=== PATIENT | male | born 1945 | race Caucasian/White ===

== ENCOUNTER 2023-07-29 13:47 | Outpatient (RCR) | payer MEDICARE, SELFPAY | END 2023-07-29 23:59 | disposition home or self-care (01) | LOC: RPT 13:47 | PROVIDERS: ATTENDING PHYSICIAN Orthopaedic Surgery; FAMILY PHYSICIAN Internal Medicine | DX: Z47.1 Aftercare following joint replacement surgery (principal); M17.11 Unilateral primary osteoarthritis, right knee; Z73.6 Limitation of activities due to disability; M25.561 Pain in right knee; Z96.651 Presence of right artificial knee joint | CPT/HCPCS: 97110; 97140; 97162; 97530 ==

== ENCOUNTER 2023-08-28 13:00 | Outpatient (RCR) | payer MEDICARE, SELFPAY | END 2023-08-28 23:59 | disposition home or self-care (01) | LOC: RPT 13:00 | PROVIDERS: ATTENDING PHYSICIAN Orthopaedic Surgery; FAMILY PHYSICIAN Internal Medicine | DX: M17.11 Unilateral primary osteoarthritis, right knee (principal); Z96.651 Presence of right artificial knee joint; Z73.6 Limitation of activities due to disability | CPT/HCPCS: 97010; 97110; 97530 ==

== ENCOUNTER 2023-09-20 15:13 | Inpatient (IN) | payer MEDICARE, SELFPAY ==
[2023-09-20] VITALS (16 sets, daily range): BP systolic 64–162; BP diastolic 60–80; BMI 26.1
--- NOTE | 2023-09-20 12:37 | ED.GENMED ---
History of Present Illness
General
Chief Complaint: Seizure
Source: ambulance crew
Time Seen by Provider: 09/20/23 12:28
History of Present Illness
History of Present Illness:
77-year-old male brought to the emergency room by ambulance after being found with seizure-like activity. Laparoscopic patient's . She evidently heard a sound of him falling and found him with tonic-clonic activity on the ground. When medics
arrived they found the patient to be minimally responsive. He then became combative. Upon arrival here to the emergency room the patient is awake but somewhat confused. He does follow commands.
Past History
Past History
ED Past Medical History: CAD, HTN, Hypercholesterolemia, Valvular disease (Aortic stenosis) and Other (Crohn's, diverticulitis, arthritis)
ED Past Surgical History: Appendectomy, Bowel resection (Sigmoidectomy), Cardiac, Orthopedic and Other (Cataract)
Social History
Personal:
Living: with family
Employment: Retired
Phy Exam
Physical Exam
Physical Exam:
General: Awake, Alert, Oriented X1. No acute distress.
Vitals: unremarkable
Head: Atraumatic
Mouth: Pain injury right anterior tongue
Eyes: Pupils equal, EOMI
Throat: Airway intact, no exudates
Neck: Trachea midline
Lungs: Clear and equal b/l
Heart: Regular rate, no murmurs
Abd: Soft, Nontender, No pulsatile mass
Neuro: Cranial nerves intact, muscle strength equal bilaterally, cerebellar exam normal
Skin: Warm, dry, no rash
Extremities: pulses equal b/l, no edema
Course
Orders/Labs/Results
Orders:
Orders
09/20/23 Lunch
NPO
Allow oral meds: Yes
Allow clear liquids: Sips of Clears
NPO with Ice Chips: Yes
09/20/23 12:28
Electrocardiogram (*1) Urgent
Reason for Study: Syncope
09/20/23 12:29
CT Head W/o Iv Contrast Urgent
Comment:
Reason For Exam: seizure
09/20/23 12:30
EKG- Treatment ONCE
09/20/23 12:32
Complete Blood Count/With Diff Urgent
Comprehensive Metabolic Panel Urgent
Creatine Phosphokinase Urgent
Folate Urgent
Magnesium Urgent
TSH Urgent
Vitamin B12 Urgent
Comment: MAG,TSH,FOLATE,B12 ADDED ON BY FLOOR 4PM 09-20-23
09/20/23 12:34
Troponin I Urgent
09/20/23 13:27
Levetiracetam Injectable [Keppra] 2,000 mg IV NOW STA
Lorazepam [Ativan] 1 mg PO NOW STA
09/20/23 13:31
Lorazepam [Ativan] 1 mg IV NOW STA
09/20/23 14:53
Admit/Transfer Patient As Directed
Co-Sign Provider:
Level of Care: Inpatient admission
Assign to:: IMU- Intermediate Care
Physician / Group: [facility]/Hospitalist
Diagnosis: Status epilepticus
Reason for Hospitalization: Seizure, status epilepticus
Expected length of stay greater than two midnights?: Yes
ELOS- Estimated Length of Stay in days: 3
I certify the patient meets the requirements for IP care: Yes
09/20/23 14:56
Code Status As Directed
Resuscitation Status: Full Code
09/20/23 15:59
0.9% Sodium Chloride 1000 ml [Nss] 1,000 ml IV 125 mls/hr
Acetaminophen [Tylenol] 650 mg PO Q4HPRN PRN
09/20/23 15:59
Add On- LAB Urgent
Tests Added?: Magnesium, TSH, Folate, B-12, CK
NEUROLOGY CONSULT Routine
Consulting Provider: Christel Cai
Was physician already notified: Yes
Reason for consult: seizure, status
Activity As Directed
Activity Level: With Assistance
Neurological Checks As Directed
Frequency: q4h
Pneumatic Compression Sleeves As Directed
Type: Knee high
Precautions As Directed
Type of Precautions: Seizure
Aspiration
Vital Signs As Directed
Frequency: Per unit guidelines
O2 Therapy [RESP] Routine
Nasal Cannula Liter Flow: 2 LPM
Titrate/Wean O2 to maintain O2 sat greater than (%): 92
Pulse Ox/spot Check [RESP] Routine
Quantity: 1
DX Deep Vein Thrombosis Video Routine
09/20/23 18:00
Enoxaparin Sodium [Lovenox] 40 mg SC QPM
Metoprolol Xl [Toprol Xl] 25 mg PO QPM
Rosuvastatin Calcium [Crestor] 20 mg PO QPM
09/20/23 20:00
Levetiracetam Injectable [Keppra] 1,000 mg IV Q12
09/20/23 22:00
Tamsulosin [Flomax] 0.8 mg PO HS
09/21/23 03:47
Basic Metabolic Panel IN AM
Complete Blood Count/No Diff IN AM
09/21/23 08:00
Aspirin Low Dose EC [Aspir Low (Enteric Coated)] 81 mg PO DAILY
Docusate Sodium [Colace] 100 mg PO DAILY
Losartan/Hydrochlorothiazide [Hyzaar 100-25 Tablet] 1 tab PO DAILY
Abnormal Lab Results
09/20/23 09/20/23
12:32 12:33
RBC 3.74 L 10^6/uL
(4.70-6.10)
Hgb 12.1 L g/dL
(13.0-18.0)
Hct 36.4 L %
(39.0-52.0)
MCV 97.3 H fL
(80.0-94.0)
MCH 32.4 H pg
(27.0-31.0)
Abs Immat Gran (auto) 0.1 H 10^3/uL
(0-0.05)
Absolute Neuts (auto) 6.7 H 10^3/uL
(1.4-6.5)
Absolute Monos (auto) 0.7 H 10^3/uL
(0.1-0.6)
Immature Gran % 0.8 H %
(0-0.5)
Lymphocytes % 17.9 L %
(20.5-51.1)
Carbon Dioxide 14 L* mmol/L
(22-30)
BUN 27 H mg/dl
(9-20)
Creatinine 1.4 H mg/dL
(0.7-1.3)
Glucose 150 H mg/dl
(70-99)
Magnesium 2.7 H mg/dl
(1.6-2.3)
Folate > 20.0 H ng/ml
(2.76-20)
POC Glucose 125 H mg/dl
(70-99)
09/20/23 12:32
09/20/23 12:32
Vital Signs
Initial and Last Documented VS:
Initial Vital Signs
Temp Pulse Resp BP Pulse Ox
98.4 F 78 20 128/70 97
09/20/23 12:27 09/20/23 12:27 09/20/23 12:27 09/20/23 12:27 09/20/23 12:27
Last Documented Vital Signs
Temp Pulse Resp BP Pulse Ox
98.0 F 57 15 118/67 94
09/21/23 03:30 09/21/23 00:30 09/21/23 00:30 09/21/23 00:10 09/21/23 00:30
MDM/Problems Addressed
Differential Diagnosis Includes:
new onset sz, status epilepticus, medication effect, cva
MDM/Problems Addressed:
Patient presents with seizure at home and had another seizure here in the emergency room. Patient given dose of lorazepam for immediate seizure control was loaded with Keppra. CT does not show any acute abnormality. No further seizure activity
here in the emergency room. Patient be hospitalized to the hospitalist service. I did discuss the patient's presentation with neurology who agree with loading of Keppra. Patient's daughter describes an episode that occurred in July what
sounds like he may have had an absence seizure. Patient also had a seizure after a stress test at [facility]. That episode was attributed to medications given at the time but given today's episodes perhaps that is not the case.
*Radiology
Radiology exam reviewed: radiology read reviewed
*Pulse Oximetry
Patient hypoxic: no
*EKG
Interpreted by ED Provider?: Yes
Interpretation: normal
Heart Rate: 80
Rate: normal
Rhythm: sinus
Downey: normal axis
Interval: normal interval
QRS Pattern: normal QRS
Ischemia: no ischemia
*Ferryboat Pilot Interpretation
Rate: normal
Interpretation: normal
Rhythm: sinus
*Critical Care Note
Total Time (30-74mins, 75-104mins- exclusive of procedures): 40 min
comment:
Critical care statement: A total of 40 minutes of critical care time was provided for this patient. This includes management of unstable vital signs, evaluation of the patient at bedside, reviewing the patient's pertinent medical records, discussion
with consultants, review of old EKGs and review of pertinent medical records. This time with separate from time utilized to perform the aforementioned documented procedures
ED Attending Note
-
Portions of this chart may have been created with voice recognition software.� Occasional wrong word or��sound alike� substitutions may have occurred due to the inherent limitations of voice recognition software.
Discharge Plan
Departure
Patient Disposition: Admit
Date of Disposition: 09/20/23
Time of Disposition: 13:34
Admit to: IMU
Presentation/result/management discussed w/ accepting MD/DO: Hospitalist
Condition: Fair
Discharge Problem:
New onset seizure
Interventions
Interventions:
*Risk Screen - Suicide Last Done: 09/20/23 12:27
*General Assessment Last Done: 09/20/23 12:27
*Neglect/Abuse Screening Last Done: 09/20/23 12:27
*ED COVID-19 Vaccine History Last Done: 09/20/23 12:27
*Nursing Disposition Last Done: 09/20/23 16:08
ED- Cardiac Assessment Last Done: 09/20/23 12:59
ED- Neurological Assessment Last Done: 09/20/23 12:59
ED- Pulmonary Assessment Last Done: 09/20/23 12:59
Discharge Date and Time
Discharge Date/Time: 09/20/23 16:08
[2023-09-20 12:42] LABS: % Basophils 0.4 % (0-2); % Eosinophils 0.5 % (0-6); % Immature Granulocytes 0.8 % (0-0.5); % Lymphocytes 17.9 % (20.5-51.1); % Monocytes 7.1 % (1.7-9.3); % Neutrophils 73.3 % (42.2-75.2); Absolute Eosinophils 0.1 10^3/uL (0-0.7); Absolute Immature Granulocytes 0.1 10^3/uL (0-0.05); Absolute Lymphocytes 1.6 10^3/uL (1.2-3.4); Absolute Monocytes 0.7 10^3/uL (0.1-0.6); Absolute Neutrophils 6.7 10^3/uL (1.4-6.5); Hematocrit 36.4 % (39.0-52.0); Hemoglobin 12.1 g/dL (13.0-18.0); Mean Corp Hgb Conc. 33.2 g/dL (33.0-37.0); Mean Corpuscular Hgb 32.4 pg (27.0-31.0); Mean Corpuscular Volume 97.3 fL (80.0-94.0); Mean Platelet Volume 10.4 fL (7.4-10.4); Nucleated Red Blood Cells % 0 % (-); Platelet Count 230 10^3/uL (130-400); Red Blood Cell Count 3.74 10^6/uL (4.70-6.10); White Blood Cell Count 9.2 10^3/uL (4.8-10.8)
[2023-09-20 12:51] LABS: Glucose - Point of Care 125 mg/dl (70-99)
[2023-09-20 13:05] LABS: ALT (SGPT) 20 U/L (0-50); AST (SGOT) 31 U/L (17-59); Albumin 4.8 g/dl (3.5-5.0); Alkaline Phosphatase 69 U/L (38-126); Blood Urea Nitrogen 27 mg/dl (9-20); Calcium 9.4 mg/dl (8.4-10.2); Carbon Dioxide 14 mmol/L (22-30); Chloride 102 mmol/L (98-107); Glucose 150 mg/dl (70-99); Potassium 4.4 mmol/L (3.5-5.1); Sodium 137 mmol/L (135-145); Total Bilirubin 0.7 mg/dl (0.2-1.3); Total Protein 7.8 g/dl (6.3-8.2); eGFR 51.77
[2023-09-20 13:08] LABS: Troponin I < 0.012 ng/ml
--- NOTE | 2023-09-20 13:27 | CON.NEURO ---
Consultation
Order
Date of Consultation: 09/20/23
Requesting Provider: Sang Mckeon DO
Reason for Consult: seizure
CC: none
HPI: This is a 77-year-old RH man who presented to [facility] on September 20, 2023 with seizure cluster. According to patient's she heard the patient making noises downstairs. She found her sitting on the car stool, shaking and
unable to express his thoughts. He was able to be lowered to the floor with no head trauma. According to EMR patient did have a fall. He was combative following the spell the patient reportedly had witnessed seizure with no documented semiology
and duration in the emergency room.
The patient was reportedly on tramadol for recent R TKA as well as recently received Stelara.
Mr. Wolfe reportedly suffered a seizure in May 2023 that was attributed to Aminophylline/Regadenoson use.
ER VS: 128/70, 78, afebrile.
EKG: NSR, QTc Int : [address] head- focal area of encephalomalacia involving the right anterolateral frontal lobe, atrophy
PDMP: Oxycodone Hcl 5 Mg 30 tabs filled in on 07/01/2023, Tramadol Hcl 50 Mg 30 tabs filled in on 11/27/2021.
Labs: Normal WBCs, sodium, CO2�14, creatinine�1.4, glucose�150, normal calcium
MAR: Keppra 2 g IV once at 1340 today.
PMH: Crohn's disease on Stelara, ILD, CAD, HTN, DLP, h/o , BPH, MGUS, GERD, gout, migraine ADAMS, GIB, TBI(195), insomnia, thoracolumbar scoliosis
PSH: �BL TKA, hemilaminectomy, LT temporal artery biopsy, AVR, bilateral cataract extraction, PTCI, L colectomy, L rotator cuff repair, carpal tunnel release-bilateral, appendectomy, R ankle surgery, left wrist fusion
SH: former smoker, , retired; no history of excessive alcohol
FH: Not contributory to current presentation.
All: Aspirin, penicillin, diclofenac, morphine, NSAIDs, Aminophylline, Regadenoson
ROS: Positive for somnolence, right knee soreness, back pain, right plan soreness, negative for headache, myalgia, change in vision, strength.
General: Well developed. In no acute distress.
Cardio: Regular rate and rhythm without murmur. Extremities are without cyanosis or edema.
Neuro:
Mental Status: Lethargic oriented to person, place, and date. Impaired l attention and recall. Good fund of knowledge. Follows complex requests across the midline. Comprehension, naming, and repetition intact.
Cranial Nerves: . Pupils are equally round, surgical. EOMs full. Visual le full to confrontation. No ptosis. No nystagmus. V1-V3 intact to light touch and pinprick bilaterally, symmetric. Face symmetric. Impaired hearing AU. The palate
elevated well. SCMs and traps 5/5. Tongue midline. No dysarthria.
Motor: Normal bulk and tone. No pronator or arm drift. Strength 5/5 throughout. No clonus.
Reflexes: Limited due to position
Sensory: Limited due to poor attention
Coordination: No dysmetria or tremor.
Gait: deferred
Right thumb laceration with
Assessment and Plan:
I. Seizure cluster. Likely provoked
II. Postictal/toxic encephalopathy
III. Right anterolateral frontal lobe encephalomalacia
-Seizure precautions
-Continue Keppra 500 mg twice daily
-Avoid medications known to lower seizure threshold
-Brain MRI without tommy
-Routine EEG (not available on weekends)
-Please check magnesium, TFTs, urine tox, EtOH level, CPK, prolactin
-Obtain medical records from [facility] for review
-The case was discussed with patient's spouse and daughter.
I personally reviewed all radiology and labs along with past medical records pertinent to current medical problems. Total time spent in patient care is 60 minutes.
Thank you for allowing us to participate in the care of this patient. We will continue to follow. Please do not hesitate to contact us with any questions or concerns.
Subjective/Objective
Subjective Data
Date of Service: September 20, 2023
Objective Data
Vital Signs
Temp Pulse Resp BP Pulse Ox
36.9 C 73 21 127/66 97
09/20/23 12:27 09/20/23 13:15 09/20/23 13:15 09/20/23 13:00 09/20/23 13:15
Lab Results
09/20/23 12:32
09/20/23 12:32
Sodium 137 mmol/L (135-145) 09/20/23 12:32
Potassium 4.4 mmol/L (3.5-5.1) 09/20/23 12:32
BUN 27 mg/dl (9-20) H 09/20/23 12:32
Glucose 150 mg/dl (70-99) H 09/20/23 12:32
Calcium 9.4 mg/dl (8.4-10.2) 09/20/23 12:32
Patient Allergies
Penicillins Allergy (Verified 05/09/21 08:25)
Joint inflammation
diclofenac Adverse Reaction (Verified 05/09/21 08:25)
chrons
morphine Adverse Reaction (Verified 05/09/21 08:25)
HALLUCINATIONS AND AGITATION
NSAIDS (Non-Steroidal Anti-Inflamma Adverse Reaction (Verified 05/09/21 08:25)
Chrons disease
Medications
-
Home Medications
Medication Instructions Recorded
metoprolol succinate 25 mg 25 mg PO QPM 07/17/12
tablet,extended release 24 hr
rosuvastatin 20 mg tablet 20 mg PO QPM 03/24/19
aspirin 81 mg tablet,delayed 81 mg PO DAILY ##0 05/10/21
release
docusate sodium 100 mg capsule 100 mg PO DAILY 09/20/23
losartan 100 1 tab PO DAILY 09/20/23
mg-hydrochlorothiazide 25 mg tablet
saw palmetto 160 mg capsule 450 mg PO DAILY 09/20/23
tamsulosin 0.4 mg capsule 0.8 mg PO HS 09/20/23
ustekinumab 90 mg/mL subcutaneous 90 mg SC Q8W 09/20/23
syringe (Stelara)
Vital Signs and Labs
-
Vital Signs and Labs:
Vital Signs
Temp Pulse Resp BP Pulse Ox
36.9 C 73 19 140/68 97
09/20/23 12:27 09/20/23 14:45 09/20/23 14:45 09/20/23 14:00 09/20/23 14:30
Lab Results
09/20/23 12:32
09/20/23 12:32
Sodium 137 mmol/L (135-145) 09/20/23 12:32
Potassium 4.4 mmol/L (3.5-5.1) 09/20/23 12:32
BUN 27 mg/dl (9-20) H 09/20/23 12:32
Glucose 150 mg/dl (70-99) H 09/20/23 12:32
Calcium 9.4 mg/dl (8.4-10.2) 09/20/23 12:32
Home Medications
-
Home Medications
metoprolol succinate 25 mg tablet,extended release 24 hr 25 mg PO QPM 07/17/12
rosuvastatin 20 mg tablet 20 mg PO QPM 03/24/19
aspirin 81 mg tablet,delayed release 81 mg PO DAILY ##0 05/10/21
docusate sodium 100 mg capsule 100 mg PO DAILY 09/20/23
losartan 100 mg-hydrochlorothiazide 25 mg tablet 1 tab PO DAILY 09/20/23
saw palmetto 160 mg capsule 450 mg PO DAILY 09/20/23
tamsulosin 0.4 mg capsule 0.8 mg PO HS 09/20/23
ustekinumab 90 mg/mL subcutaneous syringe (Stelara) 90 mg SC Q8W 09/20/23
[2023-09-20] MEDS: KEPPRA 2000 MG IV (13:42)
[2023-09-20] MEDS: ATIVAN 1 MG IV (13:43)
--- NOTE | 2023-09-20 13:52 | HPS.HSE ---
Addendum entered and electronically signed by Marily Petersen DO 09/20/23 20:36:
The patient spiked a fever of 101.3 at approximately 445pm. No headache, no other symptoms. Pt still somnolent but arousable. VSS otherwise
Discussed patient with Neuro and ID and the patient's .
Add Assessment:
#Fever and seizure
#Immunocompromise on Stelara for Crohn's, last dose 1.5 weeks ago
Plan:
#blood, urine cultures, COVID negative
#LP-IR consulted for LP with [employer] meningitis panel, gram stain, cx, glucose, protein, cell count
#start IV Ampicillin, IV Vancomycin, IV Rocephin, and IV Acyclovir
# Add steroids if [employer] meningitis panel positive for s. pneumo
# Discussed 'allergy to PCN' which states was 'a long time ago' and involved inflammation of the joints-an 'RA-type reaction', discussed with ID who recommended standard therapy with Ampicillin as first line. Discussed plan for empiric
treatment with patient's . Will discuss discontinuation of ampicillin if listeria is negative after LP tonight.
Original Note:
Family Physician
-
Family Physician: Soniya Mckenna
Chief Complaint
-
seizure
History of Present Illness
The patient is a 77 yo male with PMH significant for Crohn's Disease on Stelara (biologic agent) most recent SQ injection 1.5 weeks ago, hx of sigmoidectomy, CAD (stents), HTN, aortic stenosis (TAVR), recent knee replacement in June at [place]
(taking Ultram prn since then for pain), presents to the ED via EMS due to seizure-like activity prior to arrival. He is post-ictal following the event and history provided by and daughter- heard the patient making loud noice downstairs and
found him on the edge of the stool, almost falling off, with arms and legs 'flailing' in rhythmic motion; he almost fell but broke his fall, and placed him down on the ground on his side. He was noted to be having seizure-like tonic-clonic
activity. She called 911. He was minimally responsive when EMS arrived, noted to have GCS 3, and was noted to become combative. He had blood on his lip from a tongue bite. In ED, the patient was awake but continued to be somnolent, followed by
another similar episode witnessed in the ED associated with blank stair, head to the right, rhythmic motions, which broke with IV Ativan 1 mg and Keppra. The patient can respond to voice command currently, can state name and , but falls back to
sleep immediately and continues to be somnolent. No focal deficits. No ADAMS, no CP, no SOB, no fevers, no chills, no recent illnesses. He had a similar episode to this in May after a cardiac stress test for pre-op evaluation, which was attributed
to a medication he received during the stress test. He had a work-up at [place] at that time including MRI brain and EEG that family states was negative for acute pathology and he was not started on any anti-epileptic drugs. Of note the patient
also had a 'spell' during , in which he had transient staring spell a/w confusion that lasted several minutes then self-resolved, followed by a period of increased agitation.
He had an MRI here in 08/22/21 for headaches that showed:Diminutive appearance of the intracranial left vertebral artery with redemonstration of focal expansion and high T2 signal in the upper cervical region, likely reflecting slow flow/thrombus,
stable from prior, & Stable moderate T2/FLAIR hyperintense foci within the periventricular and deep subcortical white matter, favored on the basis of chronic small vessel changes.� Differential includes Lyme disease, chronic migraines, vasculitis
and demyelinating lesions.
ED txt: Keppra 2000 mg IV, Ativan 1 mg IV
Medical History
Past Medical History
Past Medical History: Reports CAD (NSTEMI stents LAD 2006 RCA 2015), COPD (asbestos exposure, restrictive and interstitial lung disease), HTN, Hypercholesterolemia, Valvular Disease (Aortic stenosis ) and Other (Crohn's Disease on Stelara, R Carotid
artery stenosis, BPH)
Past Surgical History: Reports Appendectomy, Bowel Resection (Left colectomy), Orthopedic (Right L4-5 hemilaminectomy 05/27/21, Knee replacement 06/2023 [facility]) and Other (TAVR, cataract)
Social History
Tobacco: Former Smoker
Alcohol: Occasional
Drug: None
Personal:
Living: With Family
Employment: Retired
Family History
Family History: CAD (Mom) and Cancer (pancreatic, colorectal, breast, skin)
Allergies / Home Medications
Allergies reflects when Allergies were last updated in [employer]
Home Medications with original date entered in [employer]
Allergy/Medication List:
Allergies
Allergy/AdvReac Type Severity Reaction Status Date / Time
Penicillins Allergy Joint Verified 05/09/21 08:25
inflammation
diclofenac AdvReac chrons Verified 05/09/21 08:25
morphine AdvReac HALLUCINATIONS Verified 05/09/21 08:25
AND
AGITATION
NSAIDS (Non-Steroidal AdvReac Chrons Verified 05/09/21 08:25
Anti-Inflamma disease
Home Medications
metoprolol succinate 25 mg tablet,extended release 24 hr 25 mg PO QPM 07/17/12
rosuvastatin 20 mg tablet 20 mg PO QPM 03/24/19
aspirin 81 mg tablet,delayed release 81 mg PO DAILY ##0 05/10/21
docusate sodium 100 mg capsule 100 mg PO DAILY 09/20/23
losartan 100 mg-hydrochlorothiazide 25 mg tablet 1 tab PO DAILY 09/20/23
saw palmetto 160 mg capsule 450 mg PO DAILY 09/20/23
tamsulosin 0.4 mg capsule 0.8 mg PO HS 09/20/23
ustekinumab 90 mg/mL subcutaneous syringe (Stelara) 90 mg SC Q8W 09/20/23
Review of Systems
-
A 12 point ROS was completed and negative except as noted: Yes
Physical Exam
Vital Signs
Vital Signs
Temp Pulse Resp BP Pulse Ox
98.4 F 73 21 127/66 97
09/20/23 12:27 09/20/23 13:15 09/20/23 13:15 09/20/23 13:00 09/20/23 13:15
Physical Exam
General: Well Developed, Well Nourished and Other (lethargic, somnolent)
HEENT: NormoCephalic, Anicteric and Other (dried blood right side of lip, right anterior tongue bite)
Respiratory: Clear
Cardiac: S1/S2 and Regular Rhythm
GI: Soft, Non Tender, Non Distended and Normal Bowel Sounds
Musculoskeletal: No Clubbing, No Cyanosis and No Edema
Skin: Warm and Dry
Neuro: Awake, Alert (x 2 (falls back to sleep quickly and has to be awakened several times to answer questions)), No Motor Deficits, Nonfocal/grossly intact and Cranial Nerves Intact
Psych: Calm
Laboratory Results
-
09/20/23 12:32
09/20/23 12:32
Laboratory Results
Total Bilirubin 0.7 mg/dl (0.2-1.3) 09/20/23 12:32
AST 31 U/L (17-59) 09/20/23 12:32
ALT 20 U/L (0-50) 09/20/23 12:32
Alkaline Phosphatase 69 U/L (38-126) 09/20/23 12:32
Troponin I < 0.012 ng/ml 09/20/23 12:34
Data Reviewed
-
CT Scan: Report Reviewed by me (CT head No evidence of acute intracranial abnormality. Stable focal area of encephalomalacia involving the right anterolateral frontal lobe.)
Medical Tests (Nuc Med, Echo, EKG etc): Image Personally Visualized and interpreted (EKG-NSR rate 80)
Impression/Plan
-
IMPRESSION:The patient is a 77 yo male with PMH significant for Crohn's Disease on Stelara (biologic agent) most recent SQ injection 1.5 weeks ago, hx of sigmoidectomy, CAD (stents), HTN, aortic stenosis (TAVR), recent knee replacement in June at
[place] (taking Ultram prn since then for pain), presents to the ED via EMS due to seizure-like activity prior to arrival. He is post-ictal following the event and history provided by and daughter- heard the patient making loud noice
downstairs and found him on the edge of the stool, almost falling off, with arms and legs 'flailing' in rhythmic motion; he almost fell but broke his fall, and placed him down on the ground on his side. He was noted to be having seizure-like
tonic-clonic activity. She called 911. He was minimally responsive when EMS arrived, noted to have GCS 3, and was noted to become combative. He had a similar episode to this in May after a cardiac stress test for pre-op evaluation, which was
attributed to a medication he received during the stress test. He had a work-up at [place] at that time including MRI brain and EEG that family states was negative for acute pathology and he was not started on any anti-epileptic drugs. The patient
also had a 'spell' during , in which he had transient staring spell a/w confusion that lasted several minutes then self-resolved, followed by a period of increased agitation.
ED txt: Keppra 2000 mg IV, Ativan 1 mg IV
No evidence of acute intracranial abnormality. Stable focal area of encephalomalacia involving the right anterolateral frontal lobe.
focal area of volume loss and CSF density, compatible with encephalomalacia, stable from previous examination, and most likely from old infarction, although could possibly be from previous head injury.
-MRI here in 08/22/21 for headaches that showed:Diminutive appearance of the intracranial left vertebral artery with redemonstration of focal expansion and high T2 signal in the upper cervical region, likely reflecting slow flow/thrombus, stable from
prior, & Stable moderate T2/FLAIR hyperintense foci within the periventricular and deep subcortical white matter, favored on the basis of chronic small vessel changes.� Differential includes Lyme disease, chronic migraines, vasculitis and
demyelinating lesions.
#Seizures x 2 without resolution to baseline in between seizures, spanning a time period of at least 40-50 minutes, concern for Status Epilepticus, likely remains post-ictal at this time
-Hold Stelara and Ultram for now and discuss possible provoked seizures due to adverse reaction versus new-onset epilepsy due to other etiology
-Admit to IMU, tele, seizure precautions
-Neurology consultation is appreciated
-cont O2 per protocol and wean as able
-Keppra 1 g IV Q12 H
-Neuro checks
-EEG and further imaging if needed, to be ordered by Neurology
-NPO for now, eval for swallowin prior to starting diet
-Aspiration precautions
-Mg, TSH, Folate, B-12 (MCV high), and CK pending
#Acidotic likely due to seizure activity - CO2 14,
-IVF and monitor laboratory
#CKD Creat 1.4, may be baseline
-check CK, IVF, and repeat BMP in am
#Crohn's Disease
-stable, hold Stelara for now
#CAD
-aspirin
-BB
#HLD
-statin
#Essential HTN, BP stable, monitor
-Losartan/HCTZ
#TAVR
#Ortho-recent knee replacement
-hold Tramadol, Tylenol prn for pain
DVT proph-Lovenox
Full Code
[2023-09-20] MEDS: TYLENOL 650 MG PO (16:21)
[2023-09-20] MEDS: NSS 1000 IV (16:21)
[2023-09-20 16:34] LABS: Creatine Phosphokinase 97 U/L (55-170); Magnesium 2.7 mg/dl (1.6-2.3)
[2023-09-20 17:18] LABS: TSH 1.28 uIU/ml (0.47-4.68)
[2023-09-20 17:45] LABS: Creatine Phosphokinase 96 U/L (55-170); Magnesium 2.5 mg/dl (1.6-2.3)
[2023-09-20 17:46] LABS: Alcohol None Detected
[2023-09-20 17:53] LABS: Folate > 20.0 ng/ml (2.76-20); Vitamin B12 755 pg/ml (239-931)
[2023-09-20 18:02] LABS: Prolactin 8.2 ng/ml (3.7-17.9)
--- NOTE | 2023-09-20 18:15 | PTCARENOTE ---
patient arrived from ED and he is drowsy but easily arousable. alert and oriented x3. Answering questions appropriately. NSR 70s, Pulse ox at 999 on 2L nc. Pt complained of feeling cold and arrived to unit with multiple blankets. Temp 101.3, p.o.
Tylenol given and IVF initiated. F/U temp is 99.8 . Pt c/o mild headache and feeling tired. He is dosing at intervals and is assisting with historical information. Pt has extensive med history, copy made and placed in chart. Skyscraper updated.
Pt Jarek with difficulty. pt had rt knee replacement in June and small scab noted at distal end of incision. No redness or discomfort noted. notified of elevated temp, pt's daughter reports she recently had Covid and requests he be swabbed due
to elevated temp at this time.
[2023-09-20 18:17] LABS: TSH Reflex To Free T4 0.52 uIU/ml (0.47-4.68)
[2023-09-20 18:24] LABS: Amphetamines Negative (Negative); Barbiturates Negative (Negative); Benzodiazepines Negative (Negative); Buprenorphine Negative (Negative); Cocaine Negative (Negative); Methamphetamines Negative (Negative)
[2023-09-20 18:25] LABS: Marijuana Negative (Negative); Methadone Negative (Negative); Opiates Negative (Negative); Phencyclidine Negative (Negative); Tricyclic Antidepressants Negative (Negative)
[2023-09-20 18:32] LABS: Urine Albumin Trace (Neg - Trace); Urine Bilirubin Negative (Negative); Urine Character Clear (Clear); Urine Color Yellow; Urine Glucose Negative (Negative); Urine Ketone Negative (Negative); Urine Leukocyte Negative (Negative); Urine Nitrite Negative (Negative); Urine Occult Blood Negative (Negative); Urine Urobilinogen Negative (Neg - 1+)
[2023-09-20 18:34] LABS: COVID-19 Antigen Negative (Negative)
--- NOTE | 2023-09-20 18:55 | PHA.VAN.IN ---
Assessment
- Assessment
Renal Function: Appears similar to baseline (SCr 1.4, same for 4 draws in a row)
Concomitant Antimicrobials: acyclovir, ceftriaxone 2g q12h
Plan
- Plan
Initial / Loading Dose: vanc 2000mg - pending administration
Maintenance Regimen: dose by level
Monitoring: random level 3/24 am
MRSA Screen: Ordered per protocol
Pharmacokinetics Vancomycin I
- -
Patient Age: 77
Patient Sex: Male
Vancomycin Day #: 1
Indication: Acid Changer Infection
Requesting Provider: Dr Petersen
Pertinent Antimicrobial Allergies:
Penicillins Allergy (Verified 05/09/21 08:25) Joint inflammation
Height / Weight:
Height 5 ft 8 in
Actual Weight 77.8 kg
Pertinent Past Medical History: p/w seizure-like activity, h/o Crohn's disease on ustekinumab
- Vital Signs / Lab Results
Temp Pulse Resp BP Pulse Ox
99.8 F 69 12 135/74 97
09/20/23 17:40 09/20/23 17:45 09/20/23 17:45 09/20/23 17:38 09/20/23 18:01
Lab Results - Hematology
09/20/23
12:32
WBC 9.2
Lab Results - Chemistry
09/20/23
12:32
BUN 27 H
Creatinine 1.4 H
Albumin 4.8
Lab Results - Urine
09/20/23
18:04
Urine Nitrite (Reflex) Negative
Leukocyte Esterase Rfl Negative
[2023-09-20] MEDS: TOPROL XL 25 MG PO (19:10)
[2023-09-20] MEDS: CRESTOR 20 MG PO (19:11)
[2023-09-20 19:35] LABS: INR 1.16; PT 14.6 Sec (11.4-14.6)
--- NOTE | 2023-09-20 20:00 | PTCARENOTE ---
Resumed care of pt laying in bed drowsy, arousable to voice, [place], AAOx3. at bedside. HR in the 60's in NSR on the monitor. POX 98% on 2LO2 NC. Lungs clear. + bowel. Pt using urinal independently when needed. Palpable peripheral pulses. Knee
high seq applied per MD order. Right AC int infusing NSS@125ml/hr. Lab work obtained. Pt instructed on MD order for LP. and pt report understanding. vital signs stable. Neuro checks as documented. Will continue to monitor.
[2023-09-20] MEDS: LOVENOX 40 MG SC (20:30)
[2023-09-20] MEDS: VANCOCIN 540 MG IV (20:31)
[2023-09-20] MEDS: KEPPRA 500 MG IV (20:34)
[2023-09-20] MEDS: ROCEPHIN 2000 MG IV (20:50)
[2023-09-20] MEDS: STERILE WATER FOR INJECTION 20 ML IV (20:50)
[2023-09-20 20:53] LABS: CSF Color Xanthochromic; CSF Tube # 1
[2023-09-20] MEDS: AMPICILLIN 108 MG IV (20:53)
[2023-09-20 20:54] LABS: CSF Clarity Hazy
[2023-09-20 20:56] LABS: White Cell Count/CSF 7 mm^3 (0-5)
--- NOTE | 2023-09-20 21:00 | PTCARENOTE ---
Pt to and from IR for LP without complication. Pt ordered to lay flat for 2 hours. Pt and at bedside reports understanding. Pt denies any complaints at this time. Vital signs stable. IVF and IV ABX infusing as ordered. Oral and Ax temp
obtained, 100.0. Will continue to monitor.
[2023-09-20 21:15] LABS: Spinal Fluid Glucose 62 mg/dl (40-70); Spinal Fluid Protein 74 mg/dl (12-60)
[2023-09-20 21:33] LABS: %Crenated RBC/CSF 0 %; Red Cell Count/CSF 1067 mm^3; Spinal Fluid Granulocytes 36 %; Spinal Fluid Lymphocytes 55 %; Spinal Fluid Macrophages 9 %
[2023-09-20] MEDS: ZOVIRAX INJECTION 265 MG IV (21:55)
[2023-09-20] MEDS: FLOMAX 0.800000000000000044 MG PO (22:39)
[2023-09-20 22:50] LABS: CSF Color Xanthochromic; CSF Tube # 4; CSF Tube # Clarity Clear
[2023-09-20 23:27] LABS: White Blood Cell Count/CSF 7 mm^3 (0-5)
[2023-09-20 23:28] LABS: Red Cell Count/CSF 435 mm^3
[2023-09-21] VITALS (7 sets, daily range): BP systolic 108–134; BP diastolic 59–67; BMI 27.0
[2023-09-21] MEDS: NSS 1000 IV ×2 (00:11→09:27)
[2023-09-21] MEDS: AMPICILLIN 108 MG IV ×3 (00:11→08:41)
[2023-09-21] MEDS: TYLENOL 650 MG PO (00:12)
[2023-09-21 04:01] LABS: Hematocrit 27.2 % (39.0-52.0); Hemoglobin 9.1 g/dL (13.0-18.0); Mean Corp Hgb Conc. 33.5 g/dL (33.0-37.0); Mean Corpuscular Hgb 31.9 pg (27.0-31.0); Mean Corpuscular Volume 95.4 fL (80.0-94.0); Mean Platelet Volume 10.7 fL (7.4-10.4); Platelet Count 152 10^3/uL (130-400); Red Blood Cell Count 2.85 10^6/uL (4.70-6.10); White Blood Cell Count 8.9 10^3/uL (4.8-10.8)
[2023-09-21 04:28] LABS: Vancomycin Random 17.6 ug/ml
[2023-09-21 04:31] LABS: Blood Urea Nitrogen 24 mg/dl (9-20); Calcium 7.5 mg/dl (8.4-10.2); Carbon Dioxide 24 mmol/L (22-30); Chloride 107 mmol/L (98-107); Estimated Creatinine Clearance 54 ml/min; Glucose 85 mg/dl (70-99); Potassium 3.3 mmol/L (3.5-5.1); Sodium 138 mmol/L (135-145); eGFR > 60.00
[2023-09-21] MEDS: KCL 40 MEQ PO (04:46)
--- NOTE | 2023-09-21 04:54 | PTCARENOTE ---
Pt awake intermittently t/o the night. pt reports right knee pain, ice pack applied per pt request. Tylenol administered as ordered. AM lab work reviewed with Selvin REYES. Orders obtained, see MAR. IVF infusing as ordered. Vital signs stable. Will
continue to monitor.
[2023-09-21] MEDS: STERILE WATER FOR INJECTION 20 ML IV ×2 (07:50→20:29)
[2023-09-21] MEDS: KEPPRA 500 MG IV ×2 (07:50→20:27)
[2023-09-21] MEDS: ROCEPHIN 2000 MG IV (07:50)
[2023-09-21] MEDS: HYZAAR 100-25 TABLET 1 TAB PO (07:51)
[2023-09-21] MEDS: COLACE 100 MG PO (07:51)
[2023-09-21] MEDS: ASPIR LOW (ENTERIC COATED) 81 MG PO (07:51)
[2023-09-21] MEDS: ZOVIRAX INJECTION 265 MG IV (08:02)
--- NOTE | 2023-09-21 09:21 | PHA.VAN.FU ---
Vancomycin Assessment / Plan
- Assessment
Renal Function: SCR Decreasing
WBC's are: WNL
In the past 24 hrs, patient has been: Afebrile
Concomitant Antimicrobials: ACYCLOVIR, AMPICILLIN, CEFTRIAXONE
- Assessment - Therapeutic Drug Monitoring
Random Level: 17.6
- Dosing Plan
Dosing by Level: Re-dose today (1250MG)
- Monitoring Plan
Random Level: 09/21 IN AM
CONSIDER SCHEDULE DOSING IF KIDNEY FX IS STABLE
- Follow Up
Pharmacy will continue to follow.
Vancomycin Follow UP
- -
Patient Age: 77
Patient Sex: Male
Vancomycin Day #: 2
Indication: Refueling [place] Infection
Requesting Provider: Dr Petersen
Pertinent Antimicrobial Allergies:
Penicillins Allergy (Verified 05/09/21 08:25) Joint inflammation
Height / Weight:
Height 5 ft 8 in
Actual Weight 80.5 kg
Pertinent Past Medical History: p/w seizure-like activity, h/o Crohn's disease on ustekinumab
- Vital Signs / Lab Results
Temp Pulse Resp BP Pulse Ox
97.6 F 54 16 108/59 99
09/21/23 07:50 09/21/23 06:30 09/21/23 06:30 09/21/23 07:51 09/21/23 06:30
Lab Results - Hematology
09/20/23 09/21/23
12:32 03:47
WBC 9.2 8.9
Lab Results - Chemistry
09/20/23 09/21/23
12:32 03:47
BUN 27 H 24 H
Creatinine 1.4 H 1.1
Estimated Creat Clear 54
Albumin 4.8
Lab Results - Urine
09/20/23
18:04
Urine Nitrite (Reflex) Negative
Leukocyte Esterase Rfl Negative
Microbiology Results
09/20/23 20:03 Meningitis/Encephalitis Panel (PCR) - Final
Csf
09/20/23 20:03 Gram Stain - Preliminary
Csf
Therapeutic Drug Monitoring
Random Vancomycin 17.6 ug/ml 09/21/23 03:47
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
--- NOTE | 2023-09-21 13:37 | W.PN.HOSP.TC ---
Today's Communication/Plan
-
advance diet
slow IVF
recheck labs
Assessment / Plan
Assessment / Plan
IMPRESSION:The patient is a 77 yo male with PMH significant for Crohn's Disease on Stelara (biologic agent) most recent SQ injection 1.5 weeks ago, hx of sigmoidectomy, CAD (stents), HTN, aortic stenosis (TAVR), recent knee replacement in June at
[facility] (taking Ultram prn since then for pain), presents to the ED via EMS due to seizure-like activity prior to arrival. He was post-ictal following the event and history provided by and daughter- heard the patient making loud noise
downstairs and found him on the edge of the stool, almost falling off, with arms and legs 'flailing' in rhythmic motion; he almost fell but broke his fall, and placed him down on the ground on his side. He was noted to be having seizure-like
tonic-clonic activity. She called 911. He was minimally responsive when EMS arrived, noted to have GCS 3, and was noted to become combative. He had a similar episode to this in May after a cardiac stress test for pre-op evaluation, which was
attributed to a medication he received during the stress test. He had a work-up at [facility] at that time including MRI brain and EEG that family states was negative for acute pathology and he was not started on any anti-epileptic drugs. The patient
also had a 'spell' during , in which he had transient staring spell a/w confusion that lasted several minutes then self-resolved, followed by a period of increased agitation.
ED txt: Keppra 2000 mg IV,� Ativan 1 mg IV
No evidence of acute intracranial abnormality. Stable focal area of encephalomalacia involving the right anterolateral frontal lobe.
focal area of volume loss and CSF density, compatible with encephalomalacia, stable from previous examination, and most likely from old infarction, although could possibly be from previous head injury.
-MRI here in 08/22/21 for headaches that showed:Diminutive appearance of the intracranial left vertebral artery with redemonstration of focal expansion and high T2 signal in the upper cervical region, likely reflecting slow flow/thrombus, stable from
prior, & Stable moderate T2/FLAIR hyperintense foci within the periventricular and deep subcortical white matter, favored on the basis of chronic small vessel changes.� Differential includes Lyme disease, chronic migraines, vasculitis and
demyelinating lesions.
#Seizures x 2 without resolution to baseline in between seizures, spanning a time period of at least 40-50 minutes, pt has had no further episodes and is currently awake and fully alert
-Hold Stelara and Ultram for now and discuss possible provoked seizures due to adverse reaction versus new-onset epilepsy due to other etiology
-Admitted to IMU, tele, seizure precautions
-Neurology consultation is appreciated
-cont O2 per protocol and wean as able
-Keppra 500 mg IV Q12 H
-Neuro checks
-EEG and further imaging if needed, to be ordered by Neurology
-did well with nurse bedside swallowing exam and diet has been advanced
-Aspiration precautions
-Mg, TSH, Folate, B-12 (MCV high), and CK pending
#Acidotic likely due to seizure activity - CO2 14-->24,
-now resolved
#CKD Creat 1.4-->1.1,
Hypokalemia post IVF, will supplement and recheck tomorrow
#Crohn's Disease
-stable, hold Stelara for now
#CAD
-aspirin
-BB
#HLD
-statin
#Essential HTN, BP stable, monitor
-Losartan/HCTZ
#TAVR
#Ortho-recent knee replacement
-hold Tramadol, Tylenol prn for pain
Pt having CXR and MRI of Brain
ID does not believe this is meningitis and abx have been stopped
DVT proph-Lovenox
reviewed extensively with at bedside
Full Code
Anticipated Discharge: 24 - 48 hours
Subjective/Interval History
-
Date of Service: September 21, 2023
No further seizure episodes since episode in ER
Objective Data
-
Labs:
Laboratory Results
09/21/23
03:47
WBC 8.9
Hgb 9.1 L D
Hct 27.2 L
Plt Count 152 D
Sodium 138
Potassium 3.3 L
Chloride 107
Carbon Dioxide 24
BUN 24 H
Creatinine 1.1
Glucose 85
Calcium 7.5 L D
Vital Signs:
Vital Signs
Temp Pulse Resp BP Pulse Ox
98.1 F 54 16 108/59 95
09/21/23 11:40 09/21/23 06:30 09/21/23 06:30 09/21/23 07:51 09/21/23 11:53
I&O
09/20/23 09/21/23 09/22/23
06:59 06:59 06:59
Intake Total 3258 / 3258
Output Total 1350 / 1350 500 / 500
Balance 1908 / 1908 -500 / -500
Review of Systems
-
History Source: Patient and Family ( at bedside)
Constitutional: Reports Fever (afebrile since 09/19 16:39 when temp was 101.3)
EENT: Reports No Symptoms Reported
Respiratory: Reports No Symptoms; Denies Cough or Trouble Breathing
Cardiac: Reports No Symptoms; Denies Chest Pain
Abdomen/GI: Reports No Symptoms
Physical Exam
-
General: Well Developed, Well Nourished and No Apparent Distress
HEENT: Normocephalic, Atraumatic and Moist Mucous Membranes
Respiratory: Clear to Auscultation; Negative Wheezes, Rales or Rhonchi
Cardiac: Regular Rhythm and S1/S2
GI: Nontender and Nondistended
Musculoskeletal: No Clubbing, No Cyanosis and No Edema
Neuro: Awake, Alert and Oriented
[2023-09-21] MEDS: D5/0.45%NSS with KCL 20 MEQ 1000 IV (14:34)
[2023-09-21] MEDS: TOPROL XL PO (16:48)
--- NOTE | 2023-09-21 16:52 | PTCARENOTE ---
Mentation much improved today - says he is back to being himself. Pt says he still feels a little 'off'/fatigued. No seizure activity today.
[2023-09-21] MEDS: CRESTOR 20 MG PO (18:09)
[2023-09-21] MEDS: LOVENOX 40 MG SC (18:09)
[2023-09-21] MEDS: KCL 20 MEQ PO (20:28)
[2023-09-21] MEDS: FLOMAX 0.800000000000000044 MG PO (23:00)
[2023-09-22] VITALS (9 sets, daily range): BP systolic 128–154; BP diastolic 70–85; PULSE 62; O2SAT 97; BMI 26.4
[2023-09-22 05:52] LABS: % Basophils 0.3 % (0-2); % Eosinophils 3.7 % (0-6); % Immature Granulocytes 0.3 % (0-0.5); % Lymphocytes 15.8 % (20.5-51.1); % Monocytes 7.6 % (1.7-9.3); % Neutrophils 72.3 % (42.2-75.2); Absolute Eosinophils 0.3 10^3/uL (0-0.7); Absolute Lymphocytes 1.1 10^3/uL (1.2-3.4); Absolute Monocytes 0.5 10^3/uL (0.1-0.6); Absolute Neutrophils 5.1 10^3/uL (1.4-6.5); Hematocrit 29.6 % (39.0-52.0); Hemoglobin 10.1 g/dL (13.0-18.0); Mean Corp Hgb Conc. 34.1 g/dL (33.0-37.0); Mean Corpuscular Hgb 32.1 pg (27.0-31.0); Mean Platelet Volume 10.4 fL (7.4-10.4); Nucleated Red Blood Cells % 0 % (-); Platelet Count 167 10^3/uL (130-400); Red Blood Cell Count 3.15 10^6/uL (4.70-6.10); Red Cell Dist. Width 13.9 % (11.5-14.5); White Blood Cell Count 7.1 10^3/uL (4.8-10.8)
[2023-09-22 06:10] LABS: Blood Urea Nitrogen 18 mg/dl (9-20); Calcium 8.7 mg/dl (8.4-10.2); Carbon Dioxide 26 mmol/L (22-30); Chloride 106 mmol/L (98-107); Estimated Creatinine Clearance 50 ml/min; Glucose 98 mg/dl (70-99); Potassium 4.2 mmol/L (3.5-5.1); Sodium 140 mmol/L (135-145); eGFR > 60.00
[2023-09-22] MEDS: ASPIR LOW (ENTERIC COATED) 81 MG PO (07:34)
[2023-09-22] MEDS: HYZAAR 100-25 TABLET 1 TAB PO (07:34)
[2023-09-22] MEDS: COLACE 100 MG PO (07:38)
[2023-09-22] MEDS: KEPPRA 500 MG IV (07:38)
[2023-09-22] MEDS: KCL 20 MEQ PO (07:38)
[2023-09-22] MEDS: D5/0.45%NSS with KCL 20 MEQ 1000 IV (07:38)
--- NOTE | 2023-09-22 08:10 | PTCARENOTE ---
Patient received from top ironer. Patient resting comfortably in bed. AAO, VSS. No events noted overnight. No complaints of pain. IVF @ 60mL/hr. Scheduled to EEG today. Call randall in reach.
--- NOTE | 2023-09-22 08:28 | W.PN.NEURO.1 ---
Today's Communication / Plan
-
-Patient will be reported to the DMV by my office he endorsed understanding 6 months before resuming driving
-Continue levetiracetam 500 mg p.o. twice daily
-Needs neurology follow-up in 4 to 6 weeks as an outpatient
-No further monitoring or testing needed as an inpatient from my perspective
-Advised minimal use of tramadol but I do not think that he would have to avoid it entirely
Will sign off
Neuro Assessment/Plan
Assessment
77-year-old man with a previous history of headaches and an event in May 2023 after cardiac stress testing thought to be provoked seizure versus syncope who presents to the hospital with 1 generalized tonic-clonic seizure witnessed at home by
his and then another focal seizure with awareness manifesting with aphasia and staring in the ED.
Brain MRI shows moderate ischemic small vessel disease in the white matter of the hemispheres no acute finding
EEG normal
LP non infectious, 7 WBC's but negative PCR, post seizure can produce mild CSF abnormalities
Patient's relates that in July with some sleep deprivation she did see 1 dose of the left short lasting pause in speech and then staring with eyes open lasting around 3 minutes with some degree of irritability afterward, this most likely
represented a focal seizure with impaired awareness.
There had been some concern with patient's use of tramadol for knee pain recently that this could be a provoking factor, however the patient has had at least 4 seizures at this point and likely does have epilepsy, risks of further seizures are too
high to not be on anti seizure medication
Remote history of minor concussion at young age non contributory
Areas of encephalomalacia and ischemic small vessel disease on brain MRI may predispose to seizure
Doubtful his Stelara can be blamed for the seizure, has been asssocaited with PRES which has been rueld out by brain MRI
Subjective/Objective
Subjective Data
Date of Service: September 22, 2023
No acute events, feeling well, discussed seizure medications
Objective Data
Vital Signs
Temp Pulse Resp BP Pulse Ox
99.3 F 64 7 146/85 90
09/22/23 07:37 09/22/23 07:34 09/22/23 04:45 09/22/23 07:34 09/22/23 04:45
Lab Results
09/22/23 05:43
09/22/23 05:43
PT 14.6 Sec (11.4-14.6) 09/20/23 19:17
INR 1.16 09/20/23 19:17
Sodium 140 mmol/L (135-145) 09/22/23 05:43
Potassium 4.2 mmol/L (3.5-5.1) D 09/22/23 05:43
BUN 18 mg/dl (9-20) 09/22/23 05:43
Glucose 98 mg/dl (70-99) 09/22/23 05:43
Calcium 8.7 mg/dl (8.4-10.2) 09/22/23 05:43
Vitamin B12 755 pg/ml (239-931) 09/20/23 12:32
Ur Buprenorphine Negative (Negative) 09/20/23 18:05
Patient Allergies
aminophylline Allergy (Verified 09/20/23 17:46)
seizures
oxymetazoline Allergy (Verified 09/20/23 17:47)
headache runny nose blurred vision
Penicillins Allergy (Verified 05/09/21 08:25)
Joint inflammation
regadenoson Allergy (Verified 09/20/23 17:47)
seizure
diclofenac Adverse Reaction (Verified 05/09/21 08:25)
chrons
morphine Adverse Reaction (Verified 05/09/21 08:25)
HALLUCINATIONS AND AGITATION
NSAIDS (Non-Steroidal Anti-Inflamma Adverse Reaction (Verified 05/09/21 08:25)
Chrons disease
Review of Systems
-
History Source: Patient
All other systems: Reviewed and negative
Constitutional: No Symptoms
EENT: No Symptoms Reported
Respiratory: No Symptoms
Cardiac: No Symptoms
Abdomen/GI: No Symptoms
Genitourinary: No Symptoms
Musculoskeletal: No Symptoms
Skin: No Symptoms
Neuro: See existing Neuro Note
Endocrine: No Symptoms
Hematologic / Lymphatic: No Symptoms
Allergy / Immunology: No Symptoms
Physical Exam
-
General: Comfortable
Eyes: No Ptosis
HEENT: Normocephalic
Neck: No Bruits Bilaterally
Respiratory: Clear to Auscultation
Cardiac: Regular Rhythm
GI: Normal Bowel Sounds
Skin: Unremarkable
Extremities: No Clubbing
Psych: Unremarkable
Extended Neurological Exam
Mood & Affect: Mood Unremarkable and Affect Unremarkable
Attention Span & Concentration: Awake, Alert and Interactive
Memory: Unremarkable
Tremor: Hand Tremor Absent
Involuntary Movement: None
Speech: Quality Unremarkable and Quantity Unremarkable; Negative Expressive Aphasia, Receptive Aphasia or Dysarthric
Cranial Nerve II: Left Eye: Pupillary Reactivity Unremarkable, Pupillary Size Unremarkable and Visual Salazar Intact
Cranial Nerve II: Right Eye: Pupillary Reactivity Unremarkable, Pupillary Size Unremarkable and Visual Salazar Intact
Cranial Nerves III, IV, : Extraocular Movement: Extraocular Movement Full in all Directions
Cranial Nerve VII: Facial Symmetry: Normal Facial Symmetry
Cranial Nerve VIII: Hearing: Unremarkable Hearing to Normal Conversational Volume
Cranial Nerves IX, X: Palate Movement: Palate Elevation Symmetric
Cranial Nerve XI: Shoulder Shrug: Unremarkable
Cranial Nerve XII: Tongue Protusion: Midline
Muscle Strength, Overall: Full Throughout
Pronator Drift: No Drift in Upper Extremities
Vibration Sensation: Unremarkable
Touch Sensation: Unremarkable
Babinski Sign: Absent Bilaterally
Data Reviewed
-
CT Head: Report Reviewed and Image Reviewed
MRI Head: Report Reviewed and Image Reviewed
EEG: Report Reviewed
[2023-09-22] MEDS: STERILE WATER FOR INJECTION IV (08:40)
--- NOTE | 2023-09-22 10:18 | EEG.RPT ---
Electroencephalogram Report
Recording
Date of EE09/22/23
Type of EEG: Routine
Length of EEG recordin minutes
Done with Video Recording: Yes
Patient Status: Inpatient
Recording Conditions: Awake and Drowsy
Hyperventilation Performed: Yes
Photic Stimulation Performed: Yes
Report
LESS THAN 1 HOUR EEG REPORT
EEG INTERPRETATION:
Unremarkable EEG for age
CLINICAL CORRELATION:
A normal EEG does not rule out a diagnosis of epilepsy. If clinical suspicion for seizure persists, a prolonged recording may be warranted.
Clinical correlation is advised.
METHODS:
A 21 channel digitized electroencephalogram (EEG) was performed in the [facility]. The 10/20 international system of electrode placement was used with ECG and lateral/vertical eye movements recorded. Persyst quantitative EEG
analysis was performed.
ELECTROENCEPHALOGRAPHER IMPRESSION(S):
Quality of study
Good
Background
Unremarkable, well maintained, medium amplitude alpha-frequency and unremarkable anterior-posterior voltage gradient
With eye opening the background activity changed to a low voltage mixture of frequencies.
Sleep
Drowsiness present
Stage 1 sleep recorded
Stage 2 sleep recorded
Hyperventilation
Did not activate the record
Photic Stimulation
Did activate the record at some intermediate flash frequencies
ECG
Normal sinus rhythm
--- NOTE | 2023-09-22 11:33 | W.PN.ID1 ---
Date of Service
Date of Service: September 22, 2023
Today's Communication
Witnessed Seizure
- infectious etiologies ruled out
- CXR chronic changes only
- follow up with neurology
ID service will no longer actively follow this patient please recall for further questions
Assessment / Plan
Witnessed Seizure
- infectious etiologies ruled out
- CXR chronic changes only
- follow up with neurology
ID service will no longer actively follow this patient please recall for further questions
Chief Complaint
-: Fever and Other (seizure)
Subjective / Review of Systems
afebrile
bp stable
without leukocytosis, cr stable, csf no growth
no complaints
Vital Signs / Physical Exam
Vital Signs
Vital Signs
Temp Pulse Resp BP Pulse Ox
99.3 F 64 7 146/85 96
09/22/23 07:37 09/22/23 07:34 09/22/23 04:45 09/22/23 07:34 09/22/23 09:24
Physical Exam
Constitutional: No Acute Distress and Chronically Ill
Cardiovascular: Regular Rate and S1/S2; Negative Murmur or Rub
Pulmonary: Clear and Symmetric; Negative Wheezes or Rales
Gastrointestinal: Soft, Non Tender, Non Distended and Normal Bowel Sounds
Skin: Warm and Dry; Negative Rash or Jaundice
Objective Data
Lab Data
Lab Results
09/22/23 05:43
09/22/23 05:43
PT 14.6 Sec (11.4-14.6) 09/20/23 19:17
INR 1.16 09/20/23 19:17
Estimated Creat Clear 50 ml/min 09/22/23 05:43
Total Bilirubin 0.7 mg/dl (0.2-1.3) 09/20/23 12:32
AST 31 U/L (17-59) 09/20/23 12:32
ALT 20 U/L (0-50) 09/20/23 12:32
Alkaline Phosphatase 69 U/L (38-126) 09/20/23 12:32
Most recent labs reviewed.
Micro Results:
09/20/23 20:03 CSF Culture - Preliminary
Csf No Growth After 48 Hours
Gram Stain - Preliminary
09/21/23 03:44 MRSA Screen - Final
Nose No Methicillin Resistant Staphylococcus aureus isolated.
09/20/23 19:17 Blood Culture - Preliminary
Blood/Venous No Growth in 24 hours- Final report to follow
09/20/23 18:31 Blood Culture - Preliminary
Blood/Venous No Growth in 24 hours- Final report to follow
09/20/23 20:03 Meningitis/Encephalitis Panel (PCR) - Final
Csf
--- NOTE | 2023-09-22 11:49 | PTOTSP ---
The patient is independent with ambulation and elevations, anticipates resuming Outpatient PT upon discharge. No Acute PT needs at this time, will sign off.
--- NOTE | 2023-09-22 11:59 | W.PN.HOSP.TC ---
Addendum entered and electronically signed by Drew Ball MD 09/23/23 15:54:
CKD 2
Addendum entered and electronically signed by Drew Ball MD 09/22/23 16:36:
DMV*
[id number]
Original Note:
Today's Communication/Plan
-
Keppra 500 mg twice daily
Follow-up neurology, PCP outpatient
Assessment / Plan
Assessment / Plan
Physical Exam
Constitutional: No Acute Distress and Chronically Ill
Cardiovascular: Regular Rate and S1/S2; Negative Murmur or Rub
Pulmonary: Clear and Symmetric; Negative Wheezes or Rales
Gastrointestinal: Soft, Non Tender, Non Distended and Normal Bowel Sounds
Skin: Warm and Dry; Negative Rash or Jaundice
#Seizures x 2 without resolution to baseline in between seizures, spanning a time period of at least 40-50 minutes, pt has had no further episodes and is currently awake and fully alert
-Neurology consultation is appreciated
-cont O2 per protocol and wean as able
-Keppra 500 mg PO Q12 H
-EEG and MRI with no obvious cause/findings of seizure
-No driving, neuro will send out to [facility]
-did well with nurse bedside swallowing exam and diet has been advanced
-Aspiration precautions
-no evidence of meningitis
#CKD
#Hypokalemia
-monitor and replete
#Crohn's Disease
-stable
#CAD
-aspirin
-BB
#HLD
-statin
#Essential HTN, BP stable, monitor
-Losartan/HCTZ
#TAVR
#Ortho-recent knee replacement
-avoid tramadol
DVT proph-Lovenox
reviewed extensively with at bedside
Full Code
More than 30 minutes spent in discharge including
Final examination of the patient
Summarizing hospital stay
Instructions for continuing care to all relevant caregivers
Preparation of discharge records, prescriptions, and referral forms
Total time spent (35 in minutes):
Anticipated Discharge: Today
Subjective/Interval History
-
Date of Service: September 22, 2023
no acute events, EEG negative, mri with no obvious reason for seizures
Objective Data
-
Labs:
Laboratory Results
09/22/23
05:43
WBC 7.1
Hgb 10.1 L
Hct 29.6 L
Plt Count 167
Sodium 140
Potassium 4.2 D
Chloride 106
Carbon Dioxide 26
BUN 18
Creatinine 1.2
Glucose 98
Calcium 8.7
Vital Signs:
Vital Signs
Temp Pulse Resp BP Pulse Ox
97.8 F 64 7 146/85 96
09/22/23 11:49 09/22/23 07:34 09/22/23 04:45 09/22/23 07:34 09/22/23 09:24
I&O
09/21/23 09/22/23 09/23/23
06:59 06:59 06:59
Intake Total 3258 / 3258 480 / 480
Output Total 1350 / 1350 1450 / 1450
Balance 1908 / 1908 -970 / -970
Review of Systems
-
History Source: Patient and Family ( at bedside)
Constitutional: Reports Fever (afebrile since 09/19 16:39 when temp was 101.3)
EENT: Reports No Symptoms Reported
Respiratory: Reports No Symptoms; Denies Cough or Trouble Breathing
Cardiac: Reports No Symptoms; Denies Chest Pain
Abdomen/GI: Reports No Symptoms
Data Reviewed
-
Diagnostic Radiology: Image personally visualized and interpreted and Report Reviewed by me
CT Scan: Image personally visualized and interpreted and Report Reviewed by me
MRI: Image personally visualized and interpreted and Report Reviewed by me
Medical Tests (Nuc Med, Echo etc): Report Reviewed by me
Labs: Labs Reviewed by me
--- NOTE | 2023-09-22 12:09 | W.DS.TRANS ---
DC Summary - [employer]ener
-
Discharge Instructions:
Discharge Diagnosis/Procedures Seizures
Diet Low Cholesterol,Low Fat
Activity As tolerated
Driving Restrictions on driving until cleared by neurology
Instructions:
Stand-Alone Forms:
Changes to Home Medications: Yes
Discharge Medications:
DC Medications w/original date entered in [employer]
metoprolol succinate 25 mg tablet,extended release 24 hr 25 mg PO QPM Blood Pressure 07/17/12
rosuvastatin 20 mg tablet 20 mg PO QPM High Cholesterol 03/24/19
aspirin 81 mg tablet,delayed release 81 mg PO DAILY ##0 05/10/21
cetirizine 10 mg tablet (Zyrtec) 10 mg PO DAILY Allergies 09/20/23
docusate sodium 100 mg capsule 100 mg PO DAILY STOOL SOFTENER 09/20/23
losartan 100 mg-hydrochlorothiazide 25 mg tablet 1 tab PO DAILY Blood Pressure 09/20/23
saw palmetto 160 mg capsule 450 mg PO DAILY Supplement 09/20/23
tamsulosin 0.4 mg capsule 0.8 mg PO HS Urinary Issue 09/20/23
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
levetiracetam 500 mg tablet 500 mg PO BID 30 days #60 tabs 09/22/23
Home Medication Changes
levetiracetam 500 mg tablet 500 mg PO BID 30 days #60 tabs 09/22/23
Pending Results: No
--- NOTE | 2023-09-22 12:24 | CM ---
Patient with Dx seizures. PT & OT Evals; no skilled PT/OT needed, resume outpatient PT.
Met with patient and Alicja;
the patient resides with his in a 3 story house, with first floor bedroom/bathroom.
The patient has been independent in ADLs and ambulation without using any assistive devices.
He has been going to outpatient PT 2x/week after recent knee surgery, and wishes to resume at d/c.
DME - [facility], [facility]
No prior VN or SNF.
PCP - Soniya Mckenna
Pharmacy - [facility]
Patient says he feels ready for d/c home today. IMM completed. His will provide a ride home.
No CM d/c needs identified.
Plan home today.
--- NOTE | 2023-09-22 13:40 | PTCARENOTE ---
Patient discharged to home. Patient left with , escorted to [facility] by wheel chair via patient transport. Patient left with all known belongings. Discharge instructions reviewed, all questions answered.
--- NOTE | 2023-09-23 08:27 | PN.CDI ---
CDI
- -
CDI:
Physician Documentation Request
Admit Date: 09/20/23 15:13
Dear Doctor Lizzy,
Please review the following and provide your response in the progress notes.
Clinical Indicators:
- 09/19 H&P 'CKD Creat 1.4, may be baseline'
- 09/21 PN indicates CKD without specificity
Laboratory Tests
09/20/23 09/21/23 09/22/23
12:32 03:47 05:43
Creatinine 1.4 H 1.1 1.2
eGFR 51.77 > 60.00 > 60.00
Please clarify which of the following accurately represents the patient's renal status:
CKD 3
CKD 2
Other
Criteria for BREANN*
1 Increase in serum creatinine by > or = to 0.3 mg/dL (> or = to 26.5 micromol/L) within 48 hours, OR
2 Increase in serum creatinine to > or = to 1.5 times baseline, which is known or presumed to have occurred within 7 days, OR
3 Urine volume < 0.5 nL/kg/hour for six hours
Stages of Chronic Kidney Disease*
Level Description GFR
G1 Normal or High >90
G2 Mildly decreased 60-89
G3a Mildly to moderately decreased 45-59
G3b Moderately to severely decreased 30-44
G4 Severely decreased 15-29
G5 Kidney failure <15
Use of terms such as suspected, likely, concern for, or probable (associated with a specific diagnosis that is being evaluated, monitored, or treated as if it exists) are acceptable and can be coded in the inpatient setting, when documented at the
time of discharge.
Thank you,
Stanford Romo RN
CDI Specialist
Please use your independent medical judgment in providing your response.
*Source: Kidney Disease: Improving Global Outcomes (KDIGO) 2012
== END 2023-09-22 13:46 | disposition home or self-care (01) | DRG 101 ==
LOC: IMU 15:13
PROVIDERS: Internal Medicine; Radiology Vascular & Interventional Radiology; ADMITTING PHYSICIAN Internal Medicine; ATTENDING PHYSICIAN Internal Medicine; CONSULT PHYSICIAN Psychiatry & Neurology Neurology; CONSULT PHYSICIAN Student in an Organized Health Care Education/Training Program; EMERGENCY PHYSICIAN Emergency Medicine; FAMILY PHYSICIAN Internal Medicine
PROC: 009U3ZX Drainage of Spinal Canal, Percutaneous Approach, Diagnostic (ICD-10-PCS; 2023-09-20)
DX: G40.901 Epilepsy, unspecified, not intractable, with status epilepticus (principal); D84.9 Immunodeficiency, unspecified; E87.20 Acidosis, unspecified; I12.9 Hypertensive chronic kidney disease with stage 1 through stage 4 chronic kidney disease, or unspecified chronic kidney disease; N18.2 Chronic kidney disease, stage 2 (mild)
CPT/HCPCS: 62328; 70450; 70496; 70551; 71046; 80048; 80053; 80202; 80306; 81003; 82077; 82550; 82607; 82746; 82945; 82962; 83735; 84146; 84157; 84443; 84484; 85025; 85027; 85610; 87015; 87040; 87070; 87205; 87483; 87811; 89051; 93005; 95816; 96374; 96375; 97162; 97166; 99291; Q9967

== ENCOUNTER 2023-09-26 08:52 | Outpatient (RCR) | payer MEDICARE, SELFPAY | END 2023-09-26 23:59 | disposition home or self-care (01) | LOC: RPT 08:52 | PROVIDERS: ATTENDING PHYSICIAN Orthopaedic Surgery; FAMILY PHYSICIAN Internal Medicine | DX: Z47.1 Aftercare following joint replacement surgery (principal); M17.11 Unilateral primary osteoarthritis, right knee; Z73.6 Limitation of activities due to disability; M25.561 Pain in right knee; G40.409 Other generalized epilepsy and epileptic syndromes, not intractable, without status epilepticus; Z96.651 Presence of right artificial knee joint | CPT/HCPCS: 97010; 97110; 97140; 97530 ==

== ENCOUNTER 2023-10-10 15:24 | Outpatient (RCR) | payer MEDICARE, SELFPAY | END 2023-10-10 23:59 | disposition home or self-care (01) | LOC: RPT 15:24 | PROVIDERS: ATTENDING PHYSICIAN Orthopaedic Surgery; FAMILY PHYSICIAN Internal Medicine | DX: M17.11 Unilateral primary osteoarthritis, right knee (principal); Z73.6 Limitation of activities due to disability; Z96.651 Presence of right artificial knee joint | CPT/HCPCS: 97010; 97110; 97530 ==

== ENCOUNTER → 2023-12-08 06:46 | Outpatient (REF) | payer MEDICARE, SELFPAY ==
[2023-12-08 07:59] LABS: % Basophils 0.9 % (0-2); % Eosinophils 4.3 % (0-6); % Immature Granulocytes 0.6 % (0-0.5); % Lymphocytes 24.8 % (20.5-51.1); % Monocytes 10.7 % (1.7-9.3); % Neutrophils 58.7 % (42.2-75.2); Absolute Basophils 0.1 10^3/uL (0-0.2); Absolute Eosinophils 0.3 10^3/uL (0-0.7); Absolute Lymphocytes 1.7 10^3/uL (1.2-3.4); Absolute Monocytes 0.8 10^3/uL (0.1-0.6); Absolute Neutrophils 4.1 10^3/uL (1.4-6.5); Hematocrit 36.1 % (39.0-52.0); Hemoglobin 12.1 g/dL (13.0-18.0); Mean Corp Hgb Conc. 33.5 g/dL (33.0-37.0); Mean Corpuscular Hgb 31.5 pg (27.0-31.0); Mean Platelet Volume 10.5 fL (7.4-10.4); Nucleated Red Blood Cells % 0 % (-); Platelet Count 210 10^3/uL (130-400); Red Blood Cell Count 3.84 10^6/uL (4.70-6.10)
[2023-12-08 08:21] LABS: ALT (SGPT) 16 U/L (0-50); AST (SGOT) 27 U/L (17-59); Albumin 3.9 g/dl (3.5-5.0); Alkaline Phosphatase 81 U/L (38-126); Blood Urea Nitrogen 28 mg/dl (9-20); Calcium 9.5 mg/dl (8.4-10.2); Carbon Dioxide 27 mmol/L (22-30); Chloride 105 mmol/L (98-107); Glucose 97 mg/dl (70-99); Potassium 4.2 mmol/L (3.5-5.1); Sodium 137 mmol/L (135-145); Total Bilirubin 0.4 mg/dl (0.2-1.3); Total Protein 7.2 g/dl (6.3-8.2); eGFR 51.45
[2023-12-08 08:31] LABS: Total Iron Binding Capacity 306 ug/dl (261-462)
[2023-12-08 08:56] LABS: Ferritin 60.8 ng/ml (17.9-464.0)
[2023-12-08 09:11] LABS: Vitamin B12 656 pg/ml (239-931)
[2023-12-08 09:14] LABS: Erythrocyte Sed Rate 31 mm/hour (0-20)
[2023-12-08 09:28] LABS: C-Reactive Protein < 5.00 mg/L (0.0-10.00)
[2023-12-09 00:38] LABS: Hepatitis B Surface Antigen Negative (Negative)
[2023-12-09 00:57] LABS: Hepatitis B Core Ab, Total Negative (Negative); Hepatitis B Surface Antibody Negative
[2023-12-11 00:43] LABS: Vitamin D 1,25 Dihydroxy 29.2 pg/mL (19.9-79.3)
== END ==
LOC: REG 06:46
PROVIDERS: ATTENDING PHYSICIAN Specialist; FAMILY PHYSICIAN Internal Medicine
DX: K50.10 Crohn's disease of large intestine without complications (principal)
CPT/HCPCS: 36415; 80053; 82607; 82652; 82728; 83550; 85025; 85652; 86140; 86704; 86706; 87340

== ENCOUNTER → 2023-12-09 07:17 | Outpatient (REF) | payer MEDICARE, SELFPAY ==
[2023-12-11 06:11] LABS: Calprotectin, Fecal 37 ug/g (<=49)
== END ==
LOC: REG 07:17
PROVIDERS: ATTENDING PHYSICIAN Specialist; FAMILY PHYSICIAN Internal Medicine
DX: K50.10 Crohn's disease of large intestine without complications (principal)
CPT/HCPCS: 83993

== ENCOUNTER → 2023-12-25 07:33 | Outpatient (REF) | payer MEDICARE, SELFPAY ==
[2023-12-25 10:37] LABS: HDL Cholesterol 43 mg/dl; LDL Cholesterol, Calculated 168 mg/dl; Total Cholesterol 241 mg/dl (50-199); Triglyceride 150 mg/dl (10-149); Very Low Density Lipoprotein 30 mg/dl (0-30)
== END ==
LOC: REG 07:33
PROVIDERS: ATTENDING PHYSICIAN Internal Medicine; FAMILY PHYSICIAN Internal Medicine
DX: E78.00 Pure hypercholesterolemia, unspecified (principal); I25.10 Atherosclerotic heart disease of native coronary artery without angina pectoris
CPT/HCPCS: 36415; 80061

== ENCOUNTER → 2024-04-19 17:32 | Outpatient (REF) | payer MEDICARE, SELFPAY | LOC: MRI 17:32 | PROVIDERS: ATTENDING PHYSICIAN Nurse Practitioner Adult Health; FAMILY PHYSICIAN Internal Medicine | DX: G44.52 New daily persistent headache (NDPH) (principal); R56.9 Unspecified convulsions; H53.9 Unspecified visual disturbance | CPT/HCPCS: 70544; 70549; A9585 ==

== ENCOUNTER → 2024-05-12 07:23 | Outpatient (REF) | payer MEDICARE, SELFPAY ==
[2024-05-12 10:04] LABS: % Basophils 0.5 % (0-2); % Eosinophils 3.2 % (0-6); % Immature Granulocytes 0.4 % (0-0.5); % Lymphocytes 20.5 % (20.5-51.1); % Monocytes 9.8 % (1.7-9.3); % Neutrophils 65.6 % (42.2-75.2); Absolute Eosinophils 0.2 10^3/uL (0-0.7); Absolute Lymphocytes 1.5 10^3/uL (1.2-3.4); Absolute Monocytes 0.7 10^3/uL (0.1-0.6); Absolute Neutrophils 4.9 10^3/uL (1.4-6.5); Hematocrit 37.4 % (39.0-52.0); Hemoglobin 12.7 g/dL (13.0-18.0); Mean Corpuscular Hgb 32.6 pg (27.0-31.0); Mean Corpuscular Volume 95.9 fL (80.0-94.0); Mean Platelet Volume 11.2 fL (7.4-10.4); Nucleated Red Blood Cells % 0 % (-); Platelet Count 193 10^3/uL (130-400); Red Cell Dist. Width 12.8 % (11.5-14.5); White Blood Cell Count 7.5 10^3/uL (4.8-10.8)
[2024-05-12 10:44] LABS: ALT (SGPT) 21 U/L (0-50); AST (SGOT) 28 U/L (17-59); Albumin 4.2 g/dl (3.5-5.0); Alkaline Phosphatase 58 U/L (38-126); Blood Urea Nitrogen 26 mg/dl (9-20); Calcium 9.3 mg/dl (8.4-10.2); Carbon Dioxide 30 mmol/L (22-30); Chloride 102 mmol/L (98-107); Creatine Phosphokinase 99 U/L (55-170); Glucose 90 mg/dl (70-99); Potassium 4.4 mmol/L (3.5-5.1); Sodium 143 mmol/L (135-145); Total Bilirubin 0.4 mg/dl (0.2-1.3); eGFR 51.45
[2024-05-12 10:48] LABS: C-Reactive Protein < 5.00 mg/L (0.0-10.00)
[2024-05-12 11:08] LABS: Erythrocyte Sed Rate 27 mm/hour (0-20)
[2024-05-13 10:33] LABS: Rheumatoid Agglutinin Less Than 10 IU (<10 IU)
[2024-05-14 00:26] LABS: CCP Antibody IgG/IgA 4 Units (0-19)
[2024-05-14 00:35] LABS: ANA, IgG Reflex to HEp-2 None Detected (None Detected)
== END ==
LOC: REG 07:23
PROVIDERS: ATTENDING PHYSICIAN Internal Medicine
DX: K52.9 Noninfective gastroenteritis and colitis, unspecified (principal); K50.10 Crohn's disease of large intestine without complications; R59.9 Enlarged lymph nodes, unspecified; M25.50 Pain in unspecified joint; M79.10 Myalgia, unspecified site
CPT/HCPCS: 36415; 80053; 82550; 85025; 85652; 86038; 86140; 86200; 86430

== ENCOUNTER → 2024-05-31 11:21 | Outpatient (REF) | payer MEDICARE, SELFPAY | LOC: HWRAD 11:21 | PROVIDERS: ATTENDING PHYSICIAN Internal Medicine | DX: R59.9 Enlarged lymph nodes, unspecified (principal) | CPT/HCPCS: 76536 ==

== ENCOUNTER → 2024-07-13 07:00 | Outpatient (REF) | payer OTHER, SELFPAY ==
[2024-07-13 08:12] LABS: % Basophils 0.7 % (0-2); % Eosinophils 3.3 % (0-6); % Immature Granulocytes 0.6 % (0-0.5); % Lymphocytes 25.8 % (20.5-51.1); % Monocytes 9.8 % (1.7-9.3); % Neutrophils 59.8 % (42.2-75.2); Absolute Basophils 0.1 10^3/uL (0-0.2); Absolute Eosinophils 0.2 10^3/uL (0-0.7); Absolute Lymphocytes 1.9 10^3/uL (1.2-3.4); Absolute Monocytes 0.7 10^3/uL (0.1-0.6); Absolute Neutrophils 4.3 10^3/uL (1.4-6.5); Hematocrit 38.4 % (39.0-52.0); Hemoglobin 12.9 g/dL (13.0-18.0); Mean Corp Hgb Conc. 33.6 g/dL (33.0-37.0); Mean Corpuscular Hgb 32.3 pg (27.0-31.0); Mean Platelet Volume 10.2 fL (7.4-10.4); Nucleated Red Blood Cells % 0 % (-); Platelet Count 182 10^3/uL (130-400); Red Cell Dist. Width 12.5 % (11.5-14.5); White Blood Cell Count 7.2 10^3/uL (4.8-10.8)
[2024-07-13 08:44] LABS: ALT (SGPT) 23 U/L (0-50); AST (SGOT) 28 U/L (17-59); Albumin 4.1 g/dl (3.5-5.0); Alkaline Phosphatase 80 U/L (38-126); Blood Urea Nitrogen 30 mg/dl (9-20); Calcium 9.1 mg/dl (8.4-10.2); Carbon Dioxide 29 mmol/L (22-30); Chloride 102 mmol/L (98-107); Glucose 106 mg/dl (70-99); HDL Cholesterol 38 mg/dl; LDL Cholesterol, Calculated 70 mg/dl; Potassium 4.1 mmol/L (3.5-5.1); Sodium 140 mmol/L (135-145); Total Bilirubin 0.4 mg/dl (0.2-1.3); Total Cholesterol 139 mg/dl (50-199); Triglyceride 155 mg/dl (10-149); Very Low Density Lipoprotein 31 mg/dl (0-30); eGFR 47.36
[2024-07-13 09:14] LABS: PSA, Total - Screen 2.88 ng/ml (0.0-4.0); TSH Reflex To Free T4 2.31 uIU/ml (0.47-4.68)
== END ==
LOC: REG 07:00
PROVIDERS: ATTENDING PHYSICIAN Internal Medicine
DX: E78.2 Mixed hyperlipidemia (principal); I10 Essential (primary) hypertension; E78.5 Hyperlipidemia, unspecified; D64.9 Anemia, unspecified; R70.0 Elevated erythrocyte sedimentation rate; E87.1 Hypo-osmolality and hyponatremia; R71.8 Other abnormality of red blood cells; Z12.5 Encounter for screening for malignant neoplasm of prostate
CPT/HCPCS: 36415; 80053; 80061; 84443; 85025; G0103

== ENCOUNTER → 2024-09-30 07:33 | Outpatient (REF) | payer OTHER, SELFPAY ==
[2024-09-30 09:19] LABS: Urine Albumin 2+ (Neg - Trace); Urine Bilirubin Negative (Negative); Urine Character Clear (Clear); Urine Color Yellow; Urine Glucose Negative (Negative); Urine Ketone Negative (Negative); Urine Leukocyte Negative (Negative); Urine Nitrite Negative (Negative); Urine Occult Blood Negative (Negative); Urine Urobilinogen Negative (Neg - 1+)
[2024-09-30 09:49] LABS: Urine Bacteria Few (Negative); Urine Red Blood Cell 0-2 /HPF (0-2); Urine Squamous Cell 0-2 /LPF (Few); Urine White Cell 0-2 /HPF (0-5)
[2024-09-30 10:34] LABS: ALT (SGPT) 21 U/L (0-50); AST (SGOT) 25 U/L (17-59); Albumin 3.8 g/dl (3.5-5.0); Alkaline Phosphatase 81 U/L (38-126); Blood Urea Nitrogen 32 mg/dl (9-20); Carbon Dioxide 30 mmol/L (22-30); Chloride 104 mmol/L (98-107); Glucose 99 mg/dl (70-99); Sodium 142 mmol/L (135-145); Total Bilirubin 0.5 mg/dl (0.2-1.3); Total Protein 6.7 g/dl (6.3-8.2); eGFR 56.23
== END ==
LOC: REG 07:33
PROVIDERS: ATTENDING PHYSICIAN Internal Medicine; OTHER PHYSICIAN Internal Medicine
DX: N40.1 Benign prostatic hyperplasia with lower urinary tract symptoms (principal); N18.32 Chronic kidney disease, stage 3b
CPT/HCPCS: 36415; 80053; 81003; 81015

== ENCOUNTER → 2024-12-06 06:51 | Outpatient (REF) | payer OTHER, SELFPAY ==
[2024-12-06 08:32] LABS: HDL Cholesterol 43 mg/dl; LDL Cholesterol, Calculated 53 mg/dl; Total Cholesterol 111 mg/dl (50-199); Triglyceride 79 mg/dl (10-149); Very Low Density Lipoprotein 15 mg/dl (0-30)
== END ==
LOC: REG 06:51
PROVIDERS: ATTENDING PHYSICIAN Internal Medicine; FAMILY PHYSICIAN Internal Medicine
DX: I25.10 Atherosclerotic heart disease of native coronary artery without angina pectoris (principal); E78.00 Pure hypercholesterolemia, unspecified
CPT/HCPCS: 36415; 80061

== ENCOUNTER → 2025-03-02 17:36 | Outpatient (REF) | payer OTHER, SELFPAY | LOC: RAD 17:36 | PROVIDERS: FAMILY PHYSICIAN Internal Medicine | DX: M19.071 Primary osteoarthritis, right ankle and foot (principal) | CPT/HCPCS: 73700 ==

== ENCOUNTER → 2025-04-21 09:06 | Outpatient (REF) | payer OTHER, SELFPAY | LOC: RCS 09:06 | PROVIDERS: ATTENDING PHYSICIAN Internal Medicine; FAMILY PHYSICIAN Internal Medicine; OTHER PHYSICIAN Internal Medicine | DX: I25.10 Atherosclerotic heart disease of native coronary artery without angina pectoris (principal); I10 Essential (primary) hypertension; Z95.2 Presence of prosthetic heart valve; I44.0 Atrioventricular block, first degree; I25.2 Old myocardial infarction | CPT/HCPCS: 93306 ==

== ENCOUNTER → 2025-05-13 09:04 | Outpatient (REF) | payer OTHER, SELFPAY | LOC: HWRAD 09:04 | PROVIDERS: ATTENDING PHYSICIAN Registered Nurse; FAMILY PHYSICIAN Internal Medicine; REFERRING PHYSICIAN Internal Medicine Critical Care Medicine | DX: J61 Pneumoconiosis due to asbestos and other mineral fibers (principal) | CPT/HCPCS: 71250 ==

== ENCOUNTER → 2025-05-19 07:00 | Outpatient (REF) | payer OTHER, SELFPAY ==
[2025-05-19 08:16] LABS: Hematocrit 36.6 % (39.0-52.0); Hemoglobin 12.3 g/dL (13.0-18.0); Mean Corp Hgb Conc. 33.6 g/dL (33.0-37.0); Mean Corpuscular Volume 96.1 fL (80.0-94.0); Platelet Count 187 10^3/uL (130-400); Red Cell Dist. Width 13.4 % (11.5-14.5)
[2025-05-19 08:55] LABS: ALT (SGPT) 18 U/L (0-50); AST (SGOT) 23 U/L (17-59); Albumin 4.1 g/dl (3.5-5.0); Alkaline Phosphatase 58 U/L (38-126); Blood Urea Nitrogen 28 mg/dl (9-20); Calcium 9.0 mg/dl (8.4-10.2); Carbon Dioxide 30 mmol/L (22-30); Chloride 103 mmol/L (98-107); Glucose 92 mg/dl (70-99); Potassium 4.2 mmol/L (3.5-5.1); Sodium 139 mmol/L (135-145); Total Protein 7.5 g/dl (6.3-8.2); eGFR 51.13
[2025-05-19 09:05] LABS: Total Iron Binding Capacity 314 ug/dl (261-462)
[2025-05-19 09:06] LABS: Iron 88 ug/dl (49-181)
[2025-05-19 10:13] LABS: C-Reactive Protein 9.00 mg/L (0.0-10.00)
[2025-05-19 10:49] LABS: Ferritin 105.0 ng/ml (17.9-464.0)
[2025-05-19 12:52] LABS: Vitamin B12 855 pg/ml (239-931)
== END ==
LOC: REG 07:00
PROVIDERS: ATTENDING PHYSICIAN Specialist; FAMILY PHYSICIAN Internal Medicine
DX: K50.10 Crohn's disease of large intestine without complications (principal)
CPT/HCPCS: 36415; 80053; 82607; 82728; 83540; 83550; 85027; 85652; 86140

== ENCOUNTER → 2025-06-01 12:05 | Outpatient (REF) | payer OTHER, SELFPAY | LOC: REG 12:05 | PROVIDERS: ATTENDING PHYSICIAN Internal Medicine Critical Care Medicine | DX: J84.9 Interstitial pulmonary disease, unspecified (principal) | CPT/HCPCS: 36415; 87070; 87205 ==